=== PATIENT | female | born 1965 | race Caucasian/White ===

== ENCOUNTER 2021-06-24 18:43 | Observation (INO) | payer BC, OTHER ==
[2021-06-24 20:02] LABS: #Basophils 0.1 thou/uL (0.0-0.2); #Lymphocytes 3.2 thou/uL (1.20-3.40); #Monocytes 0.6 thou/uL (0.11-0.59); #Neutrophils 3.7 thou/uL (1.40-6.50); %Basophils 0.7 % (0.0-1.0); %Eosinophils 0.5 % (0.0-10.0); %Lymphocytes 42.6 % (21.0-51.0); %Monocytes 7.3 % (0.0-10.0); %Neutrophils 48.8 % (42.0-75.0); Hemoglobin 17.5 g/dL (12.0-16.0); Mean Corpuscular HGB CONC 35.7 g/dL (32.0-36.0); Mean Corpuscular Hemoglobin 32.2 pg (27.0-31.0); Mean Corpuscular Volume 90.4 fL (78.0-98.0); Mean Platelet Volume 8.2 fL (7.4-10.4); Platelet Count 269 thou/uL (130-400); RBC Distribution Width 11.2 % (11.5-14.5); Red Blood Cell (RBC) Count 5.41 mill/uL (4.20-5.40); White Blood Cell (WBC) Count 7.6 thou/uL (4.8-10.8)
[2021-06-24 20:23] LABS: ALT (SGPT) 176 U/L (8-55); AST (SGOT) 78 U/L (5-34); Albumin 4.7 g/dL (3.5-5.0); Alkaline Phosphatase 58 U/L (40-110); Anion Gap 17 mmol/L (10-20); BUN (Urea Nitrogen) 18 mg/dL (9.8-20.1); Bilirubin, Total 0.6 mg/dL (0.2-1.2); Calc. Creatinine Clearance 0 mL/min (70-130); Calcium 10.8 mg/dL (7.8-10.44); Carbon Dioxide 25 mmol/L (22-29); Chloride 102 mmol/L (98-107); Globulin 2.6 g/dL (2.4-3.5); Glucose 112 mg/dL (70-105); Potassium 4.1 mmol/L (3.5-5.1); Protein, Total 7.3 g/dL (6.0-8.3); Sodium 140 mmol/L (136-145)
[2021-06-24 23:40] LABS: Troponin I Less than 0.010 ng/mL (< 0.028)
[2021-06-25] MEDS ORDERED: Ondansetron PF 4 MG/2 ML Vial IVP PRN (02:24)
[2021-06-25] MEDS ORDERED: Acetaminophen 325 MG TAB PO PRN (02:24)
[2021-06-25] MEDS ORDERED: Sodium Chloride 0.9% 1,000 ML IV SCH (02:30)
[2021-06-25] MEDS ORDERED: Nitroglycerin 2% Ointment 1 INCH/1 GM Packet TOP SCH (02:30)
[2021-06-25 02:31] LABS: Troponin I Less than 0.010 ng/mL (< 0.028)
[2021-06-25] MEDS ORDERED: Aspirin Chewable 81 MG TAB PO SCH ×2 (02:45→09:00)
[2021-06-25] MEDS ORDERED: Nitroglycerin 2% Ointment 1 INCH/1 GM Packet ONE ×2 (03:36→13:01)
[2021-06-25 03:45] VITALS: BMI 28.8
[2021-06-25] MEDS ORDERED: Ondansetron PF 4 MG/2 ML Vial ONE (06:07)
[2021-06-25 08:08] LABS: #Eosinphils 0.1 thou/uL (0.0-0.7); #Monocytes 0.5 thou/uL (0.11-0.59); #Neutrophils 3.2 thou/uL (1.40-6.50); %Basophils 0.6 % (0.0-1.0); %Lymphocytes 44.2 % (21.0-51.0); %Monocytes 7.2 % (0.0-10.0); Hemoglobin 16.1 g/dL (12.0-16.0); Mean Corpuscular HGB CONC 33.9 g/dL (32.0-36.0); Mean Corpuscular Hemoglobin 30.9 pg (27.0-31.0); Mean Platelet Volume 8.5 fL (7.4-10.4); Platelet Count 274 thou/uL (130-400); RBC Distribution Width 11.1 % (11.5-14.5); Red Blood Cell (RBC) Count 5.23 mill/uL (4.20-5.40); White Blood Cell (WBC) Count 6.8 thou/uL (4.8-10.8)
[2021-06-25 08:26] LABS: ALT (SGPT) 162 U/L (8-55); AST (SGOT) 70 U/L (5-34); Albumin 4.4 g/dL (3.5-5.0); Alkaline Phosphatase 49 U/L (40-110); Bilirubin, Direct 0.2 mg/dL (0.1-0.3); Bilirubin, Total 0.7 mg/dL (0.2-1.2); Protein, Total 6.9 g/dL (6.0-8.3)
[2021-06-25 08:27] LABS: Anion Gap 14 mmol/L (10-20); BUN (Urea Nitrogen) 20 mg/dL (9.8-20.1); Calc. Creatinine Clearance 88 mL/min (70-130); Calcium 10.1 mg/dL (7.8-10.44); Carbon Dioxide 28 mmol/L (22-29); Cardiac Risk 8.2 (Less than 4.5); Chloride 102 mmol/L (98-107); Cholesterol 212 mg/dl (< 200 Desired); Glucose 106 mg/dL (70-105); HDL Cholesterol 26 mg/dL (>60 Neg Risk); LDL Cholesterol, Calculated 133 mg/dL; Potassium 3.9 mmol/L (3.5-5.1); Sodium 140 mmol/L (136-145); Triglycerides 263 mg/dL (Less than 150)
[2021-06-25] MEDS ORDERED: ADENOSINE 60 MG/20 ML VIAL ONE (10:47)
[2021-06-25 11:46] VITALS: TEMP 98.6
[2021-06-25] MEDS ORDERED: Aspirin Chewable 81 MG TAB ONE (13:06)
[2021-06-25 15:13] VITALS: BP 153/75
[2021-06-25] MEDS ORDERED: Atorvastatin Calcium 40 MG TAB PO SCH (21:00)
[2021-06-26] MEDS ORDERED: Lisinopril/Hydrochlorothiazide 10 mg/12.5 mg Tablet PO SCH (09:00)
== END 2021-06-25 14:55 | disposition home or self-care (01) ==
LOC: ERS 18:43 → ERHOLD 22:36 → INTOOBSV 22:36 → PACU-TCU 06-25 11:37
PROVIDERS: ADMIT Internal Medicine; ATTEND Student in an Organized Health Care Education/Training Program
DX: R07.89 Other chest pain (principal); I10 Essential (primary) hypertension; E78.5 Hyperlipidemia, unspecified; K76.0 Fatty (change of) liver, not elsewhere classified; E83.52 Hypercalcemia; D75.1 Secondary polycythemia; R79.89 Other specified abnormal findings of blood chemistry; Z87.891 Personal history of nicotine dependence; Z79.899 Other long term (current) drug therapy; Z88.1 Allergy status to other antibiotic agents; Z91.013 Allergy to seafood
CPT/HCPCS: 36415; 78452; 80048; 80053; 80061; 80076; 84484; 85025; 93005; 93017; 96374; A9500; G0378; J0153; J2405; J7050

== ENCOUNTER 2022-02-24 12:53 | Emergency (ER) | payer BC, OTHER ==
[2022-02-24] MEDS ORDERED: Iopamidol 370 76% 100 ML VIAL ONE (15:01)
[2022-02-24 15:20] LABS: #Lymphocytes 1.1 thou/uL (1.20-3.40); #Monocytes 0.1 thou/uL (0.11-0.59); #Neutrophils 7.7 thou/uL (1.40-6.50); %Eosinophils 0.2 % (0.0-10.0); %Lymphocytes 12.2 % (21.0-51.0); %Monocytes 1.6 % (0.0-10.0); %Neutrophils 86.1 % (42.0-75.0); Hemoglobin 16.8 g/dL (12.0-16.0); Mean Corpuscular HGB CONC 32.9 g/dL (32.0-36.0); Mean Corpuscular Hemoglobin 30.9 pg (27.0-31.0); Mean Corpuscular Volume 93.7 fL (78.0-98.0); Mean Platelet Volume 8.2 fL (7.4-10.4); Platelet Count 238 thou/uL (130-400); RBC Distribution Width 11.6 % (11.5-14.5); Red Blood Cell (RBC) Count 5.46 mill/uL (4.20-5.40); White Blood Cell (WBC) Count 8.9 thou/uL (4.8-10.8)
[2022-02-24 15:36] LABS: Globulin 3.1 g/dL (2.4-3.5)
[2022-02-24 16:17] LABS: Albumin 4.7 g/dL (3.5-5.0)
[2022-02-24 16:18] LABS: Chloride 101 mmol/L (98-107); Potassium 3.9 mmol/L (3.5-5.1); Sodium 139 mmol/L (136-145)
[2022-02-24 16:19] LABS: Calcium 10.4 mg/dL (7.8-10.44); Glucose 137 mg/dL (70-105)
[2022-02-24 16:20] LABS: Protein, Total 7.8 g/dL (6.0-8.3)
[2022-02-24 16:21] LABS: Anion Gap 17 mmol/L (10-20); Bilirubin, Total 0.5 mg/dL (0.2-1.2); Carbon Dioxide 25 mmol/L (22-29)
[2022-02-24 16:22] LABS: Alkaline Phosphatase 66 U/L (40-110)
[2022-02-24 16:23] LABS: BUN (Urea Nitrogen) 11 mg/dL (9.8-20.1); Calc. Creatinine Clearance 0 mL/min (70-130)
[2022-02-24 16:24] LABS: AST (SGOT) 83 U/L (5-34)
[2022-02-24 16:25] LABS: ALT (SGPT) 154 U/L (8-55)
[2022-02-24] MEDS ORDERED: Dexamethasone 4 mg/ml Vial ONE (18:19)
[2022-02-24] MEDS ORDERED: diphenhydrAMINE 50 MG/ML VIAL ONE (18:19)
[2022-02-24] MEDS ORDERED: HYDROcodone/Acetaminophen 5/325 mg Tablet ONE (18:19)
== END 2022-02-24 19:03 | disposition home or self-care (01) ==
LOC: ERS 12:53
DX: L25.9 Unspecified contact dermatitis, unspecified cause (principal); I10 Essential (primary) hypertension; E78.5 Hyperlipidemia, unspecified
CPT/HCPCS: 36415; 70487; 80053; 85025; 96374; 96375; J1100; J1200; Q9967

== ENCOUNTER 2022-06-25 08:38 | Outpatient (CLI) | payer BC | END 2022-06-25 08:39 | disposition home or self-care (01) | LOC: BICMAMMO 08:38 | PROVIDERS: ATTEND Physician Assistant | DX: Z12.31 Encounter for screening mammogram for malignant neoplasm of breast (principal) | CPT/HCPCS: 77063; 77067 ==

== ENCOUNTER 2023-08-20 10:02 | Outpatient (CLI) | payer BC | END 2023-08-20 10:03 | disposition home or self-care (01) | LOC: BICMAMMO 10:02 | PROVIDERS: ATTEND Physician Assistant | DX: Z12.31 Encounter for screening mammogram for malignant neoplasm of breast (principal) | CPT/HCPCS: 77063; 77067 ==